=== PATIENT | female | born 1975 | race African-American/Black ===

== ENCOUNTER 2016-08-11 23:25 | Emergency (ER) | payer MEDICARE, OTHER ==
[~2016-08-11] VITALS: Ht 180.3 cm; Wt 118.2 kg
[~2016-08-11 23:25] MED LIST: INSREG SQ; LISI-661 PO
[2016-08-11] MEDS ORDERED: ALBUTEROL SULFATE 5 MG/ML 20 ML NEB SOLN [BULK] NEB ONE (23:30)
[2016-08-11] MEDS ORDERED: IPRATROPIUM BROMIDE 0.5 MG/2.5 ML NEB SOLUTION NEB ONE (23:30)
[2016-08-11 23:36] LABS: GLUCOSE,POINT OF CARE 160 MG/DL (70-110)
[2016-08-11] MEDS ORDERED: 0.9% SODIUM CHLORIDE 15 ML NEB SOLUTION NEB ONE (23:37)
[2016-08-12] MEDS ORDERED: 0.9% SODIUM CHLORIDE 5 ML NEB SOLUTION NEB ONE (00:57)
[2016-08-12] MEDS ORDERED: ALBUTEROL SULFATE 5 MG/ML 20 ML NEB SOLN [BULK] NEB ONE (01:00)
[2016-08-12] MEDS ORDERED: IPRATROPIUM BROMIDE 0.5 MG/2.5 ML NEB SOLUTION NEB ONE (01:00)
[2016-08-12 01:42] LABS: CREATINE KINASE MB 9.6 ng/mL (0-5)
[2016-08-12] MEDS ORDERED: ASPIRIN 81 MG CHEWABLE TABLET PO ONE (02:15)
[2016-08-12 02:29] LABS: BASOPHILS % (AUTO) 0.6 % (0.0-2.0); EOSINOPHILS % (AUTO) 1.3 % (1.0-6.0); HEMATOCRIT 24.6 % (36-46); HEMOGLOBIN 7.8 g/dL (12.0-16.0); LYMPHOCYTES # (AUTO) 3.4 K/uL (1.0-4.8); LYMPHOCYTES % (AUTO) 22.9 % (22.0-44.0); MEAN CORPUSCULAR HEMOGLOBIN 27.6 pg (26.0-34.0); MEAN CORPUSCULAR HGB CONC 31.6 G/dL (31.0-37.0); MEAN CORPUSCULAR VOLUME 87 fL (80-100); MONOCYTES # (AUTO) 1.4 K/uL (0.1-1.0); MONOCYTES % (AUTO) 9.2 % (2.0-9.0); NEUTROPHILS # (AUTO) 9.9 K/uL (1.8-7.7); PLATELET COUNT (AUTO) 280 K/uL (150-450); RED BLOOD CELL COUNT(AUTO) 2.82 MIL/uL (4.00-5.20); RED CELL DISTRIBUTION WIDTH 15.9 % (11.5-14.5)
[2016-08-12] MEDS ORDERED: NITROGLYCERIN 2% (1 GM=INCH) PACKET TP ONE (02:30)
[2016-08-12 02:38] LABS: PROTHROMBIN TIME 10.4 SEC (9.4-11.6)
[2016-08-12 02:49] LABS: CALCIUM, TOTAL 8.1 mg/dL (8.8-10.5); CREATININE 6.93 mg/dL (0.60-1.30); POTASSIUM 3.5 mmol/L (3.5-5.1)
[2016-08-12 02:57] LABS: ALBUMIN 1.7 g/dL (3.4-5.0); BILIRUBIN,TOTAL 0.5 mg/dL (0.1-1.0); TOTAL PROTEIN, SERUM 6.2 g/dL (6.4-8.2)
[2016-08-12] MEDS ORDERED: FUROSEMIDE 40 MG/4 ML VIAL IVP ONE (04:45)
[2016-08-12 06:17] VITALS: BP 128/71
== END 2016-08-12 06:49 | disposition short-term general hospital (02) ==
LOC: EMS 23:27
DX: I50.9 Heart failure, unspecified (principal); R60.1 Generalized edema; R06.02 Shortness of breath; I10 Essential (primary) hypertension; E11.9 Type 2 diabetes mellitus without complications; Z79.4 Long term (current) use of insulin
CPT/HCPCS: 36415; 71010; 80053; 82550; 82553; 82962; 83880; 84484; 84703; 85025; 85610; 85730; 93005; 94644; 94645; 96374; 99285; J1940

== ENCOUNTER 2022-08-15 21:55 | Inpatient (IN) | payer OTHER ==
[~2022-08-15] VITALS: Ht 165.1 cm; Wt 85.8 kg
[~2022-08-15 21:55] MED LIST changes: -LISI-661 PO; +LISI-893 PO
[2022-08-15] MEDS ORDERED: ETOMIDATE 2 MG/ML 10 ML VIAL ONE (22:05)
[2022-08-15] MEDS ORDERED: ROCURONIUM BROMIDE 10 MG/ML 5 ML VIAL ONE (22:05)
[2022-08-15] MEDS ORDERED: MIDAZOLAM HCL 5 MG/ML VIAL IM ONE ×2 (22:30)
[2022-08-15] MEDS: PROPOFOL 1000 MG/ISO-OSM 100 ML IV PRN (22:37)
[2022-08-15] MEDS ORDERED: IPRATROPIUM BROMIDE 0.5 MG/2.5 ML NEB SOLUTION NEB ONE (22:45)
[2022-08-15] MEDS ORDERED: ALBUTEROL SULFATE 2.5 MG/0.5 ML NEB SOLUTION NEB ONE (22:45)
[2022-08-15] MEDS ORDERED: DEXAMETHASONE SOD PHOS 4 MG/ML VIAL IVP ONE (22:45)
[2022-08-15] MEDS ORDERED: LevETIRAcetam 1,000 MG in DEXTROSE 5%-WATER 100 ML IV ONE (23:00)
[2022-08-15] MEDS ORDERED: AZITHROMYCIN 500 MG/NS 250 ML IV ONE (23:00)
[2022-08-15] MEDS ORDERED: VANCOMYCIN HCL 1.25 GM in DEXTROSE 5%-WATER 250 ML IV ONE (23:00)
[2022-08-15] MEDS ORDERED: AZTREONAM 2 GM in DEXTROSE 5%-WATER 50 ML IV ONE (23:00)
[2022-08-15 23:12] LABS: APPEARANCE,URINE TURBID (CLEAR); BILIRUBIN,URINE NEGATIVE (NEGATIVE); GLUCOSE, URINE (UA) 150-200 mg/dL (NEGATIVE); KETONES,URINE NEGATIVE (NEGATIVE); LEUKOCYTE ESTERASE ,URINE SMALL (NEGATIVE); NITRATE,URINE NEGATIVE (NEGATIVE); OCCULT BLOOD,URINE LARGE (NEGATIVE); PROTEIN,URINE 100-200,SEE CONFIRM mg/dL (NEGATIVE); SPECIFIC GRAVITIY, URINE 1.022 (1.003-1.030); UROBILINOGEN,URINE <=1.0 mg/dL (<=1.0)
[2022-08-15 23:17] LABS: BACTERIA,URINE Many /HPF (None Seen); SQUAMOUS EPITHELIAL CELL,UR Few /LPF (None Seen); SULFOSALICYLIC ACID,URINE 3+ (Negative)
[2022-08-15] MEDS ORDERED: NOREPINEPHRINE 8 MG/D5%-WATER 250 ML IV ONE (23:24)
[2022-08-15 23:28] LABS: BASOPHILS % (AUTO) 0.5 % (0.0-2.0); EOSINOPHILS % (AUTO) 0.4 % (1.0-6.0); HEMATOCRIT 31.1 % (36-46); HEMOGLOBIN 9.5 g/dL (12.0-16.0); LYMPHOCYTES # (AUTO) 0.5 K/uL (1.0-4.8); LYMPHOCYTES % (AUTO) 3.1 % (22.0-44.0); MEAN CORPUSCULAR HEMOGLOBIN 30.6 pg (26.0-34.0); MEAN CORPUSCULAR HGB CONC 30.6 G/dL (31.0-37.0); MEAN CORPUSCULAR VOLUME 100 fL (80-100); MONOCYTES # (AUTO) 1.4 K/uL (0.1-1.0); MONOCYTES % (AUTO) 8.2 % (2.0-9.0); NEUTROPHILS # (AUTO) 14.9 K/uL (1.8-7.7); NEUTROPHILS % (AUTO) 87.8 % (40.0-70.0); PLATELET COUNT (AUTO) 302 K/uL (150-450); RED BLOOD CELL COUNT(AUTO) 3.11 MIL/uL (4.00-5.20); RED CELL DISTRIBUTION WIDTH 20.7 % (11.5-14.5)
[2022-08-15] MEDS ORDERED: NOREPINEPHRINE 8 MG/D5%-WATER 250 ML IV PRN (23:30)
[2022-08-15 23:40] LABS: ANION GAP 9 mmol/L (8-16); CALCIUM, TOTAL 9.5 mg/dL (8.8-10.5); CARBON DIOXIDE 27 mmol/L (22-29); CHLORIDE 103 mmol/L (98-107); CREATININE 7.01 mg/dL (0.60-1.30); GLOMERULAR FILTR. RATE CALC 8 mL/min (>60); GLUCOSE,RANDOM 124 mg/dL (70-110); POTASSIUM 5.6 mmol/L (3.5-5.1); SODIUM SERUM 139 mmol/L (136-145); UREA NITROGEN, BLOOD 61 mg/dL (7-18)
[2022-08-15 23:41] LABS: AMPHET/METH SCREEN,URINE NEGATIVE (NEGATIVE); BARBITURATE SCREEN, URINE NEGATIVE (NEGATIVE); BENZODIAZEPINES SCREEN,URINE NEGATIVE (NEGATIVE); CANNABINOID SCREEN,URINE NEGATIVE (NEGATIVE); COCAINE SCREEN,URINE NEGATIVE (NEGATIVE); METHADONE SCREEN, URINE NEGATIVE (NEGATIVE); OPIATE SCREEN,URINE NEGATIVE (NEGATIVE); PHENCYCLIDINE SCREEN,URINE NEGATIVE (NEGATIVE)
[2022-08-15 23:43] LABS: INR 1.1 (0.9-1.1); PROTHROMBIN TIME 11.8 SEC (9.4-11.6)
[2022-08-15 23:45] LABS: AMMONIA 23 umol/L (11-32)
[2022-08-15 23:47] LABS: ABG BASE EXCESS -4.1 mmol/L (-2.0-3.0); ABG CARBOXYHEMOGLOBIN 0.8 % (0.0-1.5); ABG HCO3 20.9 mmol/L (22.0-26.0); ABG METHEMOGLOBIN 0.3 % (0.0-1.5); ABG OXYGEN CONTENT 13.3 mL/dL (15.0-23.0); ABG OXYGEN SATURATION 88.8 % (95.0-98.0); ABG OXYHEMOGLOBIN 87.8 % (94.0-100.0); ABG PCO2 43 mmHg (35-45); ABG PH 7.322 (7.35-7.450); ABG TOTAL HEMOGLOBIN 10.7 G/dL (12.0-18.0); PO2, ARTERIAL BG 57.9 mmHg (88.0-96.0); SOURCE, BLOOD GAS ARTERIAL; TEMPERATURE, FAHRENHEIT, BG 94.4 FAHREN (96.0-98.6)
[2022-08-15 23:48] LABS: PEEP,BG 5 cm H2O; SITE, BLOOD GAS RT RADIAL; VT, ABG 450 ml
[2022-08-15] MEDS ORDERED: SODIUM CHLORIDE 0.9% 100 ML ONE (23:48)
[2022-08-15] MEDS ORDERED: IOHEXOL 350 MG/ML 100 ML VIAL ONE (23:49)
[2022-08-15 23:51] LABS: ALANINE AMINOTRANSFERASE 11 U/L (12-78); ALBUMIN 2.5 g/dL (3.4-5.0); ALKALINE PHOSPHATASE 97 U/L (46-116); ASPARTATE AMINOTRANSFERASE 26 U/L (15-37); BILIRUBIN,TOTAL 0.7 mg/dL (0.1-1.0); CREATINE KINASE, TOTAL ONLY 62 U/L (26-192); HCG,QUANTITATIVE < 1 mIU/mL (0-6); PHOSPHORUS 8.1 mg/dL (2.5-4.9); TOTAL PROTEIN, SERUM 8.9 g/dL (6.4-8.2)
[2022-08-15 23:56] LABS: B-TYPE NATRIURETIC PEPTIDE 1710 pg/mL (0-100)
[2022-08-16] VITALS (9 sets, daily range): BP systolic 102–165; BP diastolic 41–99
[2022-08-16 01:46] LABS: COVID AG,FIA SOURCE NASOPHARYNGEAL
[2022-08-16] MEDS ORDERED: 0.9% SODIUM CHLORIDE 10 ML SYRINGE IVP PRN (03:00)
[2022-08-16 05:50] LABS: BASOPHILS % (AUTO) 0.3 % (0.0-2.0); EOSINOPHILS % (AUTO) 0.1 % (1.0-6.0); HEMATOCRIT 32.2 % (36-46); HEMOGLOBIN 10.2 g/dL (12.0-16.0); LYMPHOCYTES # (AUTO) 0.4 K/uL (1.0-4.8); LYMPHOCYTES % (AUTO) 2.4 % (22.0-44.0); MEAN CORPUSCULAR HEMOGLOBIN 31.3 pg (26.0-34.0); MEAN CORPUSCULAR HGB CONC 31.7 G/dL (31.0-37.0); MEAN CORPUSCULAR VOLUME 99 fL (80-100); MONOCYTES # (AUTO) 0.3 K/uL (0.1-1.0); MONOCYTES % (AUTO) 1.5 % (2.0-9.0); NEUTROPHILS # (AUTO) 16.5 K/uL (1.8-7.7); PLATELET COUNT (AUTO) 298 K/uL (150-450); RED BLOOD CELL COUNT(AUTO) 3.26 MIL/uL (4.00-5.20); RED CELL DISTRIBUTION WIDTH 20.8 % (11.5-14.5)
[2022-08-16 05:55] LABS: NEUTROPHILS % (AUTO) 95.7 % (40.0-70.0)
[2022-08-16 06:08] LABS: ALBUMIN 2.3 g/dL (3.4-5.0); BILIRUBIN,TOTAL 0.7 mg/dL (0.1-1.0); CALCIUM, TOTAL 9.1 mg/dL (8.8-10.5); CREATININE 7.02 mg/dL (0.60-1.30); POTASSIUM 5.5 mmol/L (3.5-5.1); TOTAL PROTEIN, SERUM 8.8 g/dL (6.4-8.2)
[2022-08-16] MEDS ORDERED: SODIUM CHLORIDE 0.9% 250 ML IV ONE (08:59)
[2022-08-16] MEDS: PROPOFOL 1000 MG/ISO-OSM 100 ML IV PRN (09:07)
[2022-08-16] MEDS ORDERED: *CLINICAL-LEVOFLOXACIN IVPB DOSING CLINICAL ONE ×2 (11:30→15:30)
[2022-08-16] MEDS: DEXMEDETOMIDINE HCL 400 MCG in SODIUM CHLORIDE 0.9% 96 ML IV PRN (14:27)
[2022-08-16] MEDS ORDERED: VANCOMYCIN HCL 1 GM in DEXTROSE 5%-WATER 250 ML IV PRN (15:45)
[2022-08-16] MEDS ORDERED: GABA-1216 PO (15:59)
[2022-08-16] MEDS ORDERED: CINA30 PO (15:59)
[2022-08-16] MEDS ORDERED: CARV6.2534 PO (15:59)
[2022-08-16] MEDS ORDERED: EPOE10IM SQ (15:59)
[2022-08-16] MEDS ORDERED: ASPI81TA87 PO ×2 (15:59→16:39)
[2022-08-16] MEDS ORDERED: LOSA25TA41 PO (16:39)
[2022-08-16] MEDS ORDERED: INSLAN SQ (16:39)
[2022-08-16] MEDS ORDERED: FLUO-341 PO (16:39)
[2022-08-16] MEDS ORDERED: INSU100V3 SQ (16:39)
[2022-08-16] MEDS ORDERED: IPRA3AMP23 IH (16:39)
[2022-08-16] MEDS ORDERED: LEVE500T8 PO (16:39)
[2022-08-16] MEDS ORDERED: LEVE250T4 PO (16:39)
[2022-08-16] MEDS ORDERED: LEVOFLOXACIN 750 MG/D5% WATER 150 ML IV ONE (18:00)
[2022-08-17] VITALS (13 sets, daily range): BP systolic 127–175; BP diastolic 38–59
[2022-08-17] MEDS ORDERED: HEPARIN SODIUM,PORCINE 1,000 UNITS/ML VIAL IVCATH ONE ×2 (00:30)
[2022-08-17 08:11] LABS: BASOPHILS % (AUTO) 0.3 % (0.0-2.0); EOSINOPHILS % (AUTO) 0.4 % (1.0-6.0); HEMATOCRIT 28.8 % (36-46); HEMOGLOBIN 9.3 g/dL (12.0-16.0); LYMPHOCYTES # (AUTO) 0.7 K/uL (1.0-4.8); LYMPHOCYTES % (AUTO) 5.1 % (22.0-44.0); MEAN CORPUSCULAR HEMOGLOBIN 31.1 pg (26.0-34.0); MEAN CORPUSCULAR HGB CONC 32.1 G/dL (31.0-37.0); MEAN CORPUSCULAR VOLUME 97 fL (80-100); MONOCYTES # (AUTO) 2.2 K/uL (0.1-1.0); MONOCYTES % (AUTO) 15.9 % (2.0-9.0); NEUTROPHILS # (AUTO) 10.8 K/uL (1.8-7.7); NEUTROPHILS % (AUTO) 78.3 % (40.0-70.0); PLATELET COUNT (AUTO) 274 K/uL (150-450); RED BLOOD CELL COUNT(AUTO) 2.98 MIL/uL (4.00-5.20); RED CELL DISTRIBUTION WIDTH 20.4 % (11.5-14.5)
[2022-08-17 08:29] LABS: BILIRUBIN,TOTAL 0.7 mg/dL (0.1-1.0); CALCIUM, TOTAL 8.2 mg/dL (8.8-10.5); CREATININE 5.03 mg/dL (0.60-1.30); VANCOMYCIN,RANDOM 15.5 mcg/mL (25.0-50.0)
[2022-08-17] MEDS ORDERED: VANCOMYCIN HCL 1 GM in DEXTROSE 5%-WATER 250 ML IV ONE (12:00)
[2022-08-17] MEDS ORDERED: HEPARIN SODIUM,PORCINE 1,000 UNITS/ML VIAL IVP ONE (16:36)
[2022-08-17] MEDS: DEXMEDETOMIDINE HCL 400 MCG in SODIUM CHLORIDE 0.9% 96 ML IV PRN (19:44)
[2022-08-18] VITALS: BP 167/48
[2022-08-18] MEDS: DEXMEDETOMIDINE HCL 400 MCG in SODIUM CHLORIDE 0.9% 96 ML IV PRN ×3 (00:44→13:37)
[2022-08-18 04:00] VITALS: BP 175/55
[2022-08-18 06:11] LABS: BASOPHILS % (AUTO) 0.8 % (0.0-2.0); EOSINOPHILS % (AUTO) 2.8 % (1.0-6.0); HEMATOCRIT 25.3 % (36-46); HEMOGLOBIN 8.3 g/dL (12.0-16.0); LYMPHOCYTES # (AUTO) 1.5 K/uL (1.0-4.8); LYMPHOCYTES % (AUTO) 16.8 % (22.0-44.0); MEAN CORPUSCULAR HEMOGLOBIN 31.9 pg (26.0-34.0); MEAN CORPUSCULAR HGB CONC 32.9 G/dL (31.0-37.0); MEAN CORPUSCULAR VOLUME 97 fL (80-100); MONOCYTES # (AUTO) 1.4 K/uL (0.1-1.0); MONOCYTES % (AUTO) 16.1 % (2.0-9.0); NEUTROPHILS # (AUTO) 5.5 K/uL (1.8-7.7); NEUTROPHILS % (AUTO) 63.5 % (40.0-70.0); PLATELET COUNT (AUTO) 262 K/uL (150-450); RED BLOOD CELL COUNT(AUTO) 2.61 MIL/uL (4.00-5.20)
[2022-08-18 06:21] LABS: ALBUMIN 1.7 g/dL (3.4-5.0); BILIRUBIN,TOTAL 0.6 mg/dL (0.1-1.0); CREATININE 6.14 mg/dL (0.60-1.30); POTASSIUM 4.5 mmol/L (3.5-5.1); TOTAL PROTEIN, SERUM 7.5 g/dL (6.4-8.2)
[2022-08-18 08:00] VITALS: BP 173/55
[2022-08-18] MEDS: HydrALAZINE HCL 20 MG/ML VIAL IVP PRN ×2 (10:59→21:41)
[2022-08-18 12:00] VITALS: BP 140/58
[2022-08-18] MEDS ORDERED: FLUO10CA24 PO (12:31)
[2022-08-18] MEDS ORDERED: ALBU90AE IH (12:31)
[2022-08-18] MEDS ORDERED: EPOE10I SQ (12:31)
[2022-08-18] MEDS ORDERED: ONDA-104 PO (12:31)
[2022-08-18] MEDS ORDERED: CINA30 PO (12:31)
[2022-08-18] MEDS ORDERED: OMEP20 PO (12:31)
[2022-08-18] MEDS ORDERED: LEVE250T4 PO (12:31)
[2022-08-18] MEDS ORDERED: SEVE0.8P6 PO (12:31)
[2022-08-18] MEDS ORDERED: BISA-151 PO (12:31)
[2022-08-18] MEDS ORDERED: MEDR5TAB5 PO (12:31)
[2022-08-18] MEDS ORDERED: LOSA-381 PO (12:31)
[2022-08-18] MEDS ORDERED: SODI5POW3 PO (12:31)
[2022-08-18] MEDS ORDERED: ASPI-1450 PO (12:31)
[2022-08-18] MEDS ORDERED: LEVE500T20 PO (12:31)
[2022-08-18] MEDS ORDERED: COMP25S PR (12:31)
[2022-08-18] MEDS ORDERED: INSLAN SQ (12:31)
[2022-08-18] MEDS ORDERED: INSREG SQ (12:31)
[2022-08-18] MEDS ORDERED: GABA-1216 PO (12:31)
[2022-08-18] MEDS ORDERED: MELA5TAB40 PO (12:31)
[2022-08-18] MEDS ORDERED: IPRA3AMP24 NEB (12:31)
[2022-08-18] MEDS ORDERED: CARV6 PO (12:31)
[2022-08-18] MEDS ORDERED: FOLI0.8T21 PO (12:31)
[2022-08-18 16:00] VITALS: BP 151/55
[2022-08-18] MEDS ORDERED: DEXTROSE 50%-WATER 25 GM/50 ML SYRINGE IVP PRN (16:00)
[2022-08-18] MEDS: INSULIN LISPRO 100 UNITS/ML SQ PRN (17:24)
[2022-08-18] MEDS ORDERED: LEVOFLOXACIN 500 MG/D5% WATER 100 ML IV SCH (18:00)
[2022-08-18 20:00] VITALS: BP 144/49
[2022-08-18 20:46] LABS: GLUCOSE,POINT OF CARE 150 MG/DL (70-110)
[2022-08-18 22:01] LABS: GLUCOSE,POINT OF CARE 135 MG/DL (70-110)
[2022-08-19] VITALS (16 sets, daily range): BP systolic 91–173; BP diastolic 32–82
[2022-08-19] MEDS: DEXMEDETOMIDINE HCL 400 MCG in SODIUM CHLORIDE 0.9% 96 ML IV PRN ×4 (00:12→22:32)
[2022-08-19 05:24] LABS: BASOPHILS % (AUTO) 0.6 % (0.0-2.0); EOSINOPHILS % (AUTO) 3.6 % (1.0-6.0); HEMATOCRIT 24.5 % (36-46); LYMPHOCYTES # (AUTO) 1.3 K/uL (1.0-4.8); LYMPHOCYTES % (AUTO) 19.6 % (22.0-44.0); MEAN CORPUSCULAR HEMOGLOBIN 31.2 pg (26.0-34.0); MEAN CORPUSCULAR HGB CONC 32.6 G/dL (31.0-37.0); MEAN CORPUSCULAR VOLUME 96 fL (80-100); MONOCYTES % (AUTO) 15.1 % (2.0-9.0); NEUTROPHILS # (AUTO) 4.1 K/uL (1.8-7.7); NEUTROPHILS % (AUTO) 61.1 % (40.0-70.0); PLATELET COUNT (AUTO) 247 K/uL (150-450); RED BLOOD CELL COUNT(AUTO) 2.56 MIL/uL (4.00-5.20); RED CELL DISTRIBUTION WIDTH 19.6 % (11.5-14.5)
[2022-08-19] MEDS: INSULIN LISPRO 100 UNITS/ML SQ PRN ×2 (05:29→17:41)
[2022-08-19 05:31] LABS: GLUCOSE,POINT OF CARE 151 MG/DL (70-110)
[2022-08-19 05:38] LABS: ALBUMIN 1.7 g/dL (3.4-5.0); BILIRUBIN,TOTAL 0.6 mg/dL (0.1-1.0); CALCIUM, TOTAL 7.5 mg/dL (8.8-10.5); CREATININE 6.97 mg/dL (0.60-1.30); POTASSIUM 4.7 mmol/L (3.5-5.1); TOTAL PROTEIN, SERUM 7.3 g/dL (6.4-8.2)
[2022-08-19] MEDS ORDERED: SODIUM CHLORIDE 0.9% 2,000 ML ONE (06:36)
[2022-08-19] MEDS ORDERED: ALBUMIN HUMAN 25%-12.5GM/50ML 50 ML IV PRN (08:45)
[2022-08-19] MEDS ORDERED: EPOETIN ALFA 10,000 UNITS/ML 2 ML VIAL SQ SCH (09:00)
[2022-08-19 14:35] LABS: ABG A-A DIFF O2 105.5 mmHg (10-20.0); ABG BASE EXCESS -4.6 mmol/L (-2.0-3.0); ABG CARBOXYHEMOGLOBIN 1.2 % (0.0-1.5); ABG HCO3 21.2 mmol/L (22.0-26.0); ABG METHEMOGLOBIN 0.3 % (0.0-1.5); ABG OXYGEN CONTENT 12.1 mL/dL (15.0-23.0); ABG OXYGEN SATURATION 97.7 % (95.0-98.0); ABG OXYHEMOGLOBIN 96.2 % (94.0-100.0); ABG PCO2 29 mmHg (35-45); ABG PH 7.444 (7.35-7.450); ABG TOTAL HEMOGLOBIN 8.8 G/dL (12.0-18.0); O2 DEVICE,BLOOD GAS VENTILATOR (ROOM AIR); PEEP,BG 5 cm H2O; PO2, ARTERIAL BG 105.5 mmHg (88.0-96.0); SITE, BLOOD GAS RT RADIAL; SOURCE, BLOOD GAS ARTERIAL; TEMPERATURE, FAHRENHEIT, BG 97.2 FAHREN (96.0-98.6); VT, ABG 450 ml
[2022-08-19 17:26] LABS: GLUCOSE,POINT OF CARE 116 MG/DL (70-110)
[2022-08-19] MEDS ORDERED: ALBUMIN HUMAN 25%-12.5GM/50ML IV BOTTLE IV ONE (17:29)
[2022-08-19] MEDS ORDERED: HEPARIN SODIUM,PORCINE 1,000 UNITS/ML VIAL IVP ONE (17:29)
[2022-08-19 19:15] LABS: GLUCOSE,POINT OF CARE 152 MG/DL (70-110)
[2022-08-19 22:11] LABS: GLUCOSE,POINT OF CARE 123 MG/DL (70-110)
[2022-08-20] VITALS: BP 138/38
[2022-08-20] MEDS ORDERED: PROPOFOL 1000 MG/ISO-OSM 100 ML IV PRN (00:15)
[2022-08-20 04:00] VITALS: BP 142/45
[2022-08-20] MEDS: DEXMEDETOMIDINE HCL 400 MCG in SODIUM CHLORIDE 0.9% 96 ML IV PRN ×3 (06:20→17:10)
[2022-08-20] MEDS: INSULIN LISPRO 100 UNITS/ML SQ PRN (06:54)
[2022-08-20 07:39] LABS: BASOPHILS % (AUTO) 0.4 % (0.0-2.0); EOSINOPHILS % (AUTO) 2.3 % (1.0-6.0); HEMOGLOBIN 7.9 g/dL (12.0-16.0); LYMPHOCYTES # (AUTO) 0.9 K/uL (1.0-4.8); LYMPHOCYTES % (AUTO) 17.4 % (22.0-44.0); MEAN CORPUSCULAR HEMOGLOBIN 30.3 pg (26.0-34.0); MEAN CORPUSCULAR HGB CONC 31.4 G/dL (31.0-37.0); MEAN CORPUSCULAR VOLUME 96 fL (80-100); MONOCYTES # (AUTO) 0.7 K/uL (0.1-1.0); MONOCYTES % (AUTO) 12.9 % (2.0-9.0); NEUTROPHILS # (AUTO) 3.4 K/uL (1.8-7.7); PLATELET COUNT (AUTO) 249 K/uL (150-450); RED CELL DISTRIBUTION WIDTH 19.7 % (11.5-14.5)
[2022-08-20 07:45] LABS: CALCIUM, TOTAL 7.9 mg/dL (8.8-10.5); CREATININE 5.2 mg/dL (0.60-1.30); POTASSIUM 4.5 mmol/L (3.5-5.1)
[2022-08-20 08:00] VITALS: BP 117/34
[2022-08-20 12:00] VITALS: BP 142/35
[2022-08-20 12:31] LABS: GLUCOSE,POINT OF CARE 145 MG/DL (70-110)
[2022-08-20 13:06] LABS: GLUCOSE,POINT OF CARE 109 MG/DL (70-110)
[2022-08-20 16:00] VITALS: BP 141/93
[2022-08-20 17:10] VITALS: BP 140/60
[2022-08-20] MEDS ORDERED: VANCOMYCIN HCL 1 GM in DEXTROSE 5%-WATER 250 ML IV ONE (23:00)
== END 2022-08-20 17:35 | disposition short-term general hospital (02) | DRG 870 ==
LOC: EMS 22:03 → ICU 08-16 02:30
PROVIDERS: ADMIT Hospitalist; ATTEND Hospitalist
PROC: 5A1955Z Respiratory Ventilation, Greater than 96 Consecutive Hours (ICD-10-PCS; principal; 2022-08-16)
PROC: 0BH17EZ Insertion of Endotracheal Airway into Trachea, Via Natural or Artificial Opening (ICD-10-PCS; 2022-08-16)
PROC: 5A1D70Z Performance of Urinary Filtration, Intermittent, Less than 6 Hours Per Day (ICD-10-PCS; 2022-08-17)
PROC: 4A00X4Z Measurement of Central Nervous Electrical Activity, External Approach (ICD-10-PCS; 2022-08-17)
PROC: 5A1D70Z Performance of Urinary Filtration, Intermittent, Less than 6 Hours Per Day (ICD-10-PCS; 2022-08-19)
PROC: 5A1D70Z Performance of Urinary Filtration, Intermittent, Less than 6 Hours Per Day (ICD-10-PCS; 2022-08-20)
DX: A41.9 Sepsis, unspecified organism (principal); G92.9 Unspecified toxic encephalopathy; J96.01 Acute respiratory failure with hypoxia; N18.6 End stage renal disease; J69.0 Pneumonitis due to inhalation of food and vomit; I12.0 Hypertensive chronic kidney disease with stage 5 chronic kidney disease or end stage renal disease; N39.0 Urinary tract infection, site not specified; D63.1 Anemia in chronic kidney disease; E11.22 Type 2 diabetes mellitus with diabetic chronic kidney disease; R68.0 Hypothermia, not associated with low environmental temperature; E83.39 Other disorders of phosphorus metabolism; Z86.73 Personal history of transient ischemic attack (TIA), and cerebral infarction without residual deficits; Z86.74 Personal history of sudden cardiac arrest; Z88.0 Allergy status to penicillin; Z99.2 Dependence on renal dialysis; Z88.8 Allergy status to other drugs, medicaments and biological substances
CPT/HCPCS: 36600; 70450; 71045; 71260; 72193; 74160; 80048; 80053; 80202; 80307; 81001; 81002; 82140; 82550; 82805; 82962; 83605; 83735; 83880; 84100; 84484; 84702; 85025; 85610; 85730; 87040; 87081; 87086; 87186; 87340; 90935; 93005; 94002; 94003; 95816; 99291; G0378; G0480; J0360; J0456; J0712; J0885; J1100; J1644; J1956; J2250; J2704; J3370; J3490; J7030; J7050; J7060; P9047; Q9967; 36415-L1; 36415-TC